=== PATIENT | female | born 1950 | race African-American/Black ===

== ENCOUNTER 2020-04-25 14:08 | Outpatient (CLI) | payer MEDICARE ==
[~2020-04-25 14:08] MED LIST: Magnevist 469MG/ML 20 ML VIAL ONE
--- NOTE | 2020-04-25 17:10 | MRI ---
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 The patient comes with an elevated chromogranin A level, suspicious for tumor recurrence. FINDINGS: There are interval postop changes of distal pancreatectomy (tumor removal) and splenectomy are seen. No enhancing pancreatic mass identified. There are three tiny (upto 3-4 mm) cystic lesions in the bod y of the pancreas without post contrast enhancement. These do not demonstrate characteristics of the previously noted tumor. The pancreatic and biliary ducts are not abnormally dilated. A few tiny cysts in the right hepatic lobe and a 2.0 cm cyst in the inferior pole of the left kidney are again seen. The adrenal glands and right kidney appear normal. No free fluid or lymphadenopathy seen. There is no evidence of aneurysmal dilatation of the abdominal aorta. The bone marrow signal is normal. The gallbladder is normal. IMPRESSION: 1. No evidence of enhancing pancreatic mass to suggest recurrent neuroendocrine tumor. CT Abdome n and pelvis would be helpful to evaluate for rectal tumor recurrence or metastases. 2. Tiny cystic lesions in the pancreas should be followed up in 6 months. POS: OFF
== END 2020-04-25 14:09 | disposition home or self-care (01) ==
LOC: BICMRI 14:08
PROVIDERS: ATTEND Internal Medicine Gastroenterology
DX: K21.0 Gastro-esophageal reflux disease with esophagitis (principal); K59.00 Constipation, unspecified; D3A.8 Other benign neuroendocrine tumors; B19.20 Unspecified viral hepatitis C without hepatic coma; K86.89 Other specified diseases of pancreas; K86.2 Cyst of pancreas
CPT/HCPCS: 74183; 82565

== ENCOUNTER 2022-06-06 09:44 | Outpatient (CLI) | payer MEDICARE ==
[2022-06-06 14:37] LABS: #Basophils 0.1 thou/uL (0.0-0.2); #Eosinphils 0.1 thou/uL (0.0-0.7); #Lymphocytes 2.4 thou/uL (1.20-3.40); #Monocytes 0.4 thou/uL (0.11-0.59); %Basophils 1.5 % (0.0-1.0); %Eosinophils 0.9 % (0.0-10.0); %Lymphocytes 40.4 % (21.0-51.0); %Monocytes 6.9 % (0.0-10.0); %Neutrophils 50.3 % (42.0-75.0); Hemoglobin 13.5 g/dL (12.0-16.0); Mean Corpuscular HGB CONC 31.5 g/dL (32.0-36.0); Mean Corpuscular Hemoglobin 30.7 pg (27.0-31.0); Mean Corpuscular Volume 97.5 fl (78.0-98.0); Mean Platelet Volume 9.3 fL (7.4-10.4); Platelet Count 244 thou/uL (130-400); RBC Distribution Width 12.2 % (11.5-14.5); Red Blood Cell (RBC) Count 4.41 mill/uL (4.20-5.40)
[2022-06-06 15:10] LABS: ALT (SGPT) 19 U/L (8-55); AST (SGOT) 18 U/L (5-34); Albumin 4.2 g/dL (3.4-4.8); Alkaline Phosphatase 74 U/L (40-110); Anion Gap 11 mmol/L (10-20); BUN (Urea Nitrogen) 9 mg/dL (9.8-20.1); Bilirubin, Total 0.9 mg/dL (0.2-1.2); Calc. Creatinine Clearance 0 mL/min (70-130); Calcium 9.8 mg/dL (7.8-10.44); Carbon Dioxide 29 mmol/L (23-31); Chloride 104 mmol/L (98-107); Estimated GFR 79; Globulin 3.1 g/dL (2.4-3.5); Glucose 114 mg/dL (83-110); Potassium 4.2 mmol/L (3.5-5.1); Protein, Total 7.3 g/dL (5.8-8.1); Sodium 140 mmol/L (136-145)
== END 2022-06-06 09:45 | disposition home or self-care (01) ==
LOC: MRI 09:44
PROVIDERS: ATTEND Internal Medicine Gastroenterology
DX: D3A.8 Other benign neuroendocrine tumors (principal); Z90.49 Acquired absence of other specified parts of digestive tract
CPT/HCPCS: 36415; 74183; 80053; 82378; 85025; 86301